=== PATIENT | female | born 1980 | race Caucasian/White ===

== ENCOUNTER 2020-09-15 13:02 | Emergency (ER) | payer BC, OTHER ==
[~2020-09-15] VITALS: Ht 154.9 cm; Wt 69.5 kg
[~2020-09-15 13:02] MED LIST: BIRTH CONTROL PILLS PO; KETO10TA PO; MAGN400T26 PO; METF10002 PO; OMEP20TA62 PO; ONDA4TAB13 SL; PNV91TAB3 PO
[2020-09-15 13:09] VITALS: BP 116/80
[2020-09-15] MEDS ORDERED: OXYcodone/APAP 5/325MG TABLET ONE (13:58)
[2020-09-15] MEDS ORDERED: OXYcodone/APAP 5/325MG TABLET PO ONE (14:00)
--- NOTE | 2020-09-15 14:00 | NUR ---
Pt medicated for pain, pt to be discharged home.
--- NOTE | 2020-09-15 14:20 | NUR ---
Patient with mother at bedside whomis driving. pt understands she is givenpain medication. She understands she needs to follow up with Dr. Ngo andto call thursday morning. Pt ambulates with even steady gait in no acute distress.
== END 2020-09-15 14:44 | disposition home or self-care (01) ==
LOC: ED 14:42
DX: G89.18 Other acute postprocedural pain (principal); Z88.8 Allergy status to other drugs, medicaments and biological substances; Z79.899 Other long term (current) drug therapy
CPT/HCPCS: 99283